=== PATIENT | male | born 1970 | race Hispanic/Latino ===

== ENCOUNTER → 2018-11-04 | Outpatient (CLI) | payer BC ==
[~2018-11-04] MED LIST: LISINOPRIL2.5 MG PO; METFORMIN HCL500 MG PO
--- NOTE | 2018-11-04 11:50 | Diagnostic Imaging Report ---
EXAM: Right upper quadrant abdominal ultrasound INDICATION: Elevated LFTs. COMPARISON: Report from abdominal ultrasound dated 06/10/2014, the images are not available for review at the time of this dictation. TECHNIQUE: Transverse and longitudinal images of the right upper quadrant abdomen were obtained FINDINGS: Liver: Size: 17.9 cm in the right midclavicular line Appearance: Increased echogenicity, smooth contour Mass: No focal masses Gallbladder: No distention, pericholecystic fluid, wall thickening, stone, or reported sonographic Lange's sign. Gallbladder wall measures 0.3 cm. There is a 0.6 cm exophytic hypoechoic polypoid structure projecting along the fundal gallbladder wall without evidence of Doppler flow. Previously this was reported to have measured 0.7 cm on ultrasound from 06/10/2014. Bile Ducts: Intrahepatic Ducts: No dilatation Extrahepatic Ducts: Common bile duct measures 0.3cm, no dilatation Pancreas: Visualized portions of the pancreatic head, neck and proximal body are normal. Kidney: The right kidney measures 11.7 cm without evidence of hydronephrosis or stone. Vessels: Aorta: Visualized portions are normal Inferior Vena Cava: Visualized portions are normal Main Portal Vein: 1.1 cm, normal size with hepatopetal flow. Free Fluid: No evidence of ascites. IMPRESSION: Hepatomegaly with hepatic steatosis. A 0.6 cm fundal gallbladder polyp. While prior images from 06/10/2014 were not available for review at the time of this dictation, per comparison with the prior report, the polyp appears similar in size. Follow-up ultrasound is suggested in 12 months. Signed by: Dr. Nestor Pearce MD on 11/04/2018 11:46 AM
== END ==
LOC: US 10:00
PROVIDERS: ATTEND Family Medicine
DX: R94.5 Abnormal results of liver function studies (principal)
CPT/HCPCS: 76705